=== PATIENT | female | born 1940 | race Two or more races ===

== ENCOUNTER 2018-06-12 05:42 | Day surgery (SDC) | payer MEDICARE, OTHER ==
--- NOTE | 2018-06-07 15:55 | Pre-Procedure Note/Attestation ---
Pre-Procedure Note/Attestation Complete Prior to Procedure Planned Procedure: left Procedure Narrative: phaco with IOL Indications for Procedure Pre-Operative Diagnosis: cataract Attestation I attest that I discussed the nature of the procedure; its benefits; risks and complications; and alternatives (and the risks and benefits of such alternatives ), prior to the procedure, with the patient (or the patient's legal malt liquors sales representative). I attest that, if there was a reasonable possibility of needing a blood transfusion, the patient (or the patient's legal malt liquors sales representative) was given the [facility] standardized written summary, pursuant to the [place] Blood Safety Act ([place] Health and Safety Code # 1645, as amended). I attest that I re-evaluated the patient just prior to the surgery and that there has been no change in the patient's H&P, except as documented below: MARIELOS CRAWFORD Jun 07, 2018 15:55
--- NOTE | 2018-06-07 15:57 | Opthalmology H&P ---
Ophthalmology H&P H&P Chief Complaint: decreased vision in left eye HPI Vision Affects Ability to: read, focus/use eyes together, manage personal affairs Exam Visual Acuity: OD: 20/60 OS: 20/100 Tension: OD: 12 OS: 14 Eye Exam: normal OU: external exam, palpebral fissure-width, marginal reflex distance, levator function, corneas, anterior chambers; findings: lens - OD: ns OS: ns, fundus exam - OD: amd OS: ME Assessment/Plan Diagnosis: (1) Nuclear cataract of left eye Treatment Plan: cataract extraction w/ lens implant Goals of Treatment: improvement of vision, enhance quality of life Attestation Attestation The risks and benefits of the surgery as well as alternative procedures were explained to the patient in detail. MARIELOS CRAWFORD Jun 07, 2018 15:57
[2018-06-08 10:18] LABS: BASOPHILS % (AUTO) 0.7 % (0.0-2.0); EOSINOPHILS % (AUTO) 1.4 % (0.0-3.0); HEMOGLOBIN 14.6 G/DL (12.0-16.0); LYMPHOCYTES % (AUTO) 42.5 % (20.0-45.0); MEAN CORPUSCULAR VOLUME 90 FL (80-99); MONOCYTES % (AUTO) 5.4 % (1.0-10.0); PLATELET COUNT 264 K/UL (150-450); RED CELL DISTRIBUTION WIDTH 11.2 % (11.6-14.8); WHITE BLOOD COUNT 6.3 K/UL (4.8-10.8)
[2018-06-08 10:27] LABS: INR 1.1 (0.9-1.1)
[2018-06-08 10:29] LABS: ANION GAP 6 mmol/L (5-15); BLOOD UREA NITROGEN 14 mg/dL (7-18); CALCIUM 9.4 MG/DL (8.5-10.1); CARBON DIOXIDE 29 MMOL/L (21-32); CHLORIDE 104 MMOL/L (98-107); CREATININE 0.7 MG/DL (0.55-1.30); POTASSIUM 4.3 MMOL/L (3.5-5.1); SODIUM 139 MMOL/L (136-145)
--- NOTE | 2018-06-11 16:00 | Cardiology Report ---
APPROVED REPORT EKG Measurement Heart [id number] Normal sinus rhythm Normal ECG
[2018-06-12] VITALS (8 sets, daily range): BP systolic 127–156; BP diastolic 51–87
[~2018-06-12] VITALS: Ht 154.9 cm; Wt 66.7 kg
[~2018-06-12 05:42] MED LIST: NKM
[2018-06-12] MEDS: Tobramycin Op Soln 0.3% 5ml LEFT EYE SCH ×3 (06:26→06:38)
[2018-06-12] MEDS: Phenylephrine 10% Opth Soln 5ml LEFT EYE SCH ×3 (06:26→06:38)
[2018-06-12] MEDS: Tropicamide 1% Opth 15ml Soln LEFT EYE SCH ×3 (06:26→06:38)
[2018-06-12] MEDS: Diclofenac Sod 0.1% Op Soln LEFT EYE SCH ×3 (06:26→06:38)
[2018-06-12] MEDS: Cyclopentolate 1% Opth Sol 2ml LEFT EYE SCH ×3 (06:26→06:38)
[2018-06-12] MEDS ORDERED: Proparacaine 0.5% Opth Soln 15ml LEFT EYE ONE (07:00)
[2018-06-12] MEDS ORDERED: Dexamethasone 4mg/ml vial ONE (07:00)
[2018-06-12] MEDS ORDERED: Pilocarpine 2% Opth 15ml Soln ONE (07:00)
[2018-06-12] MEDS ORDERED: Pred Forte 1% Opth Susp 1ml ONE (07:00)
[2018-06-12] MEDS ORDERED: Maxitrol Opth Oint 3.5gm ONE (07:00)
[2018-06-12] MEDS ORDERED: Akten 3.5% 1ml Btl LEFT EYE ONE (07:00)
[2018-06-12] MEDS ORDERED: Tetracaine 0.5% Opth 4ml Soln LEFT EYE ONE (07:00)
[2018-06-12] MEDS ORDERED: Lidocaine 4% Amp ONE (07:33)
[2018-06-12] MEDS ORDERED: Carbachol 0.01% Op Soln 1.5ml vial ONE (07:33)
[2018-06-12] MEDS ORDERED: EPINEPHrine 1mg/1ml Amp ONE (07:33)
[2018-06-12] MEDS ORDERED: acetaZOLAMIDE 500mg Inj ONE (07:33)
[2018-06-12] MEDS ORDERED: Lidocaine 2% MPF 5ml Vial INJ ONE (07:33)
[2018-06-12] MEDS ORDERED: Bupivacaine 0.75% 30ml vial INJ ONE (07:34)
[2018-06-12] MEDS ORDERED: BSS 500ml btl ONE (07:34)
[2018-06-12] MEDS ORDERED: BSS 15ml BTL ONE (07:34)
[2018-06-12] MEDS ORDERED: Povidone-Iodine 5% opth solution ONE (07:34)
[2018-06-12] MEDS ORDERED: Sodium Hyaluronate 14 mg/ml 0.85ml ONE (07:35)
--- NOTE | 2018-06-12 07:58 | Anethesia Preoperative Eval ---
Anesthesia Pre-op PMH/ROS General Date of Evaluation: Jun 12, 2018 Time of Evaluation: 07:45 Anesthesiologist: Cely Patel CRNA ASA Score: ASA 2 Mallampati Score Class I : Soft palate, uvula, fauces, pillars visible Class II: Soft palate, uvula, fauces visible Class III: Soft palate, base of uvula visible Class IV: Only hard plate visible Mallampati Classification: Class II Surgeon: Nicolle Diagnosis: LEFT eye cataract Surgical Procedure: LEFT eye cataract extraction, IOL Anesthesia History: none Family History: no anesthesia problems Allergies: Coded Allergies: No Known Allergies (Unverified , 06/07/18) Medications: see eMAR Past Medical History Cardiovascular: Denies: HTN, CAD, ND, valve dz, arrhythmia, other Gastrointestinal/Genitourinary: Denies: GERD, CRI, ESRD, other Endocrine: Reports: other - Prediabetic; Denies: DM, hypothyroidism, steroids HEENT: Reports: cataract (L) - Plan for cataract extraction today, cataract (R) ; Denies: glaucoma, [place] (L), [place] (R), other Hematology/Immune: Denies: anemia, DVT, bleeding disorder, other Musculoskeletal/Integumentary: Denies: OA, RA, DJD, DDD, edema, other PMH Narrative: as noted above PSxH Narrative: Oopherectomy Anesthesia Pre-op Phys. Exam Physician Exam Last Vital Signs Date Time Temp Pulse Resp B/P (MAP) Pulse Ox O2 Delivery O2 Flow Rate FiO2 06/12/18 06:36 98.0 65 18 136/51 (79) 97 98.0 06/12/18 06:33 Room Air Neurologic: CN 2-12 intact Cardiovascular: RRR Respiratory: CTA Gastrointestinal: S/NT/ND Airway Exam Mallampati Score: Class II MO: full TMD: > 3 FB ROM: full Teeth: intact Dentures: no upper, no lower Anesthesia Pre-op A/P Labs see chart WNL Studies Pre-op Studies: EKG - NSR Risk Assessment & Plan Assessment: ASA 2, o/w healthy 77 yo female, ok to proceed with anesthesia Plan: MAC Status Change Before Surgery: No Pre-Antibiotics Given Within 1 Hr of Incision: Cely Willson CRNA Jun 12, 2018 07:58
[2018-06-12] MEDS ORDERED: Propofol 200mg/20ml IV ONE (08:30)
[2018-06-12] MEDS ORDERED: LR 1000ml ONE (08:30)
[2018-06-12] MEDS ORDERED: Sterile Water Irrig 1000ml IRRIG ONE (08:30)
[2018-06-12] MEDS ORDERED: NS Irrig 1000ml ONE (08:30)
[2018-06-12] MEDS ORDERED: Midazolam 2mg/2ml Inj ONE (08:39)
--- NOTE | 2018-06-12 09:23 | Immediate Post-Op Evaluation ---
Immediate Post-Op Evalulation Immediate Post-Op Evalulation Procedure: LEFT cataract extraction with IOL Date of Evaluation: Jun 12, 2018 Time of Evaluation: 09:17 IV Fluids: LR 400 ML Estimated Blood Loss: 0 Blood Pressure Systolic: 146 Blood Pressure Diastolic: 76 Pulse Rate: 65 Respiratory Rate: 20 O2 Sat by Pulse Oximetry: 98 Temperature (Fahrenheit): 97.8 Pain Score (1-10): 0 Nausea: No Vomiting: No Complications none Patient Status: awake, reacts Hydration Status: adequate Given Within 1 Hr of Incision: Cely Willson CRNA Jun 12, 2018 09:23
--- NOTE | 2018-06-12 12:34 | 48 Hour Post Anesthesia Eval ---
Post Anesthesia Evaluation Procedure: LEFT cataract extraction with IOL Date of Evaluation: Jun 12, 2018 Time of Evaluation: 09:40 Blood Pressure Systolic: 144 0: 76 Pulse Rate: 66 Respiratory Rate: 17 Temperature (Fahrenheit): 97.2 O2 Sat by Pulse Oximetry: 98 Airway: patent Nausea: No Vomiting: No Pain Intensity: 0 Hydration Status: adequate Cardiopulmonary Status: stable Mental Status/LOC: patient returned to baseline Follow-up Care/Observations: none Post-Anesthesia Complications: none Follow-up care needed: ready to discharge Cely Patel CRNA Jun 12, 2018 12:34
--- NOTE | 2018-06-13 17:01 | Brief Operative Note ---
Immediate Post Operative Note Operative Note Chief Complaint: blurry vision Pre-op Diagnosis: cataract, OS Procedure: phaco with IOL Post-op Diagnosis: Pseudophakia Post-op Diagnosis: same as pre-op Findings: consistent w/pre-op dx studies Surgeon: Nicolle Anesthesiologist: Jorge Anesthesia: MAC Specimen: none Complications: none Condition: stable Fluids: LR Estimated Blood Loss: none Drains: none Implant(s) used?: Yes MARIELOS CRAWFORD Jun 13, 2018 17:01
--- NOTE | 2018-06-14 09:06 | Operative Note - PDOC ---
Operative Note Operative Note Date of Operation/Procedure: Jun 12, 2018 Chief Complaint: blurry vision Pre-op Diagnosis: cataract, OS Procedure: phaco with IOL Post-op Diagnosis: Pseudophakia Post-op Diagnosis: same as pre-op Operative Findings: consistent w/pre-op dx studies Surgeon: Nicolle Anesthesiologist: Jorge Anesthesia: MAC Specimen: none Complications: none Condition: stable Fluids: LR Estimated Blood Loss: none Drains: none Implant(s) used?: Yes Indications for Procedure cataract Description of Procedure This patient has been complaining visually significant cataract in the affected eye with the best corrected visual acuity under moderate glare conditions worse. The patient complains of difficulties with glare in performing activities of daily living and wants to manage personal affairs with comfort and accuracy and see well enough to move with safety at home and outdoors. The risks, benefits and alternatives of the procedure were discussed with the patient in the office prior to scheduling surgery. All questions from the patient were answered after the surgical procedure was explained in detail. The risks of the procedure as explained to the patient include, but are not limited to, pain, infection, bleeding, loss of vision, retinal detachment, need for further surgery, loss of lens nucleus, double vision, etc. Alternative procedures were discussed which include, to do nothing or seek a second opinion. Informed consent for this procedure was obtained from the patient. The patient was referred to a primary care physician for a cardiopulmonary clearance prior to surgery, after proper evaluation was done patient was properly scheduled for outpatient surgery. The patient was brought to the operating room where the anesthesiologist established I.V. lines and cardiac monitoring leads. Mild intravenous sedation was administered. The patient was then prepared with a 5% solution of povidone -iodine to the conjunctival fornix and lashes, and a 5% solution of povidone- iodine to the lids and periorbital skin. The patient was then draped in the usual sterile fashion. A lid speculum was then placed in the operative eye. A keratome blade was then used to create a biplanar incision into the anterior chamber. Viscoelastics was then instilled into the anterior chamber. A capsulorrhexis was then fashioned with an utrata forceps A G 27 cannula was used to hydrodissect and hydro delineate the lens nucleus. Paracentesis incision was made at 3 o'clock with sharp blade. The phacoemulsification unit, after being properly adjusted and tested, was then used to emulsify the nucleus followed by aspiration and irrigation of residual cortical material. Healon was then instilled into the anterior chamber. The corneal wound was then enlarged to the size of the optic with the tony keratome blade. The intraocular lens was then inspected for right power and size and thought to be satisfactory. Then the lens was gently placed in the capsular bag. Positioning within the capsular bag was confirmed by direct visualization. Optic centration was accomplished with a [place] hook. Viscoelastics was removed from the anterior chamber using the irrigation and aspiration unit. The corneal wound was then tested for leaks and none were found. The lid speculum were then removed. Sponge and needle counts were correct. An eye patch and shield were placed over the operative eye. The patient was taken to the recovery room in stable condition. There were no complications. The patient tolerated the procedure well. The patient was then transferred to the ambulatory surgery unit in stable and satisfactory condition , was given detailed written instructions and asked to follow up in the office the next day. MARIELOS CRAWFORD Jun 14, 2018 09:06
== END 2018-06-12 10:30 | disposition home or self-care (01) ==
LOC: SUR 05:42
DX: H25.12 Age-related nuclear cataract, left eye (principal); R73.03 Prediabetes
CPT/HCPCS: 36415; 66984; 80048; 85025; 85610; 85730; 93005; J0171; J1100; J2250; J2704; J3370; V2632; 94003; 94150